=== PATIENT | female | born 1980 | race African-American/Black ===

== ENCOUNTER 2019-05-11 19:18 | Emergency (ER) | payer MEDICAID ==
[~2019-05-11] VITALS: Ht 162.6 cm; Wt 128.8 kg
[2019-05-11] MEDS ORDERED: LIDO:MAALOX 1:1 20 ML SINGLE DOSE. SWSW ONE (20:00)
[2019-05-11] MEDS ORDERED: IV NORMAL SALINE 1000ML BAG 1,000 ML IV ONE (20:00)
[2019-05-11] MEDS ORDERED: ONDANSETRON PF 4 MG/2 ML VIAL. IV ONE (20:00)
[2019-05-11 20:07] LABS: BASO # 0.1 x10^3/uL (0.0-0.2); BASO % 1 % (0-3); EOS # 0.2 x10^3/uL (0.0-0.7); EOS % 2 % (0-3); HEMATOCRIT 36.1 % (36.0-47.0); LYMPH # 2.4 x10^3/uL (1.0-4.8); LYMPH % 27 % (24-48); MEAN CORPUSCULAR HEMOGLOBIN 26 pg (25-35); MEAN CORPUSCULAR HGB CONC 33 g/dL (31-37); MEAN CORPUSCULAR VOLUME 79 fL (79-100); MONO # 1.1 x10^3/uL (0.0-1.1); MONO % 12 % (0-9); NEUT # 5.2 x10^3/uL (1.8-7.7); NEUT % 59 % (31-73); PLATELET COUNT 347 x10^3/uL (140-400); RED BLOOD COUNT 4.57 x10^6/uL (3.50-5.40); RED CELL DISTRIBUTION WIDTH 16.4 % (11.5-14.5); WHITE BLOOD COUNT 8.9 x10^3/uL (4.0-11.0)
[2019-05-11 20:08] LABS: BILIRUBIN,URINE NEGATIVE (NEG); CLARITY,URINE CLEAR; COLOR,URINE AMBER; NITRITE,URINE NEGATIVE (NEG); PROTEIN,URINE NEGATIVE (NEG-TRACE)
[2019-05-11 20:15] LABS: CALCIUM 9.5 mg/dL (8.5-10.1); CREATININE 0.9 mg/dL (0.6-1.0); GFR 83.5; POTASSIUM 4.1 mmol/L (3.5-5.1)
[2019-05-11 20:21] LABS: ALBUMIN 3.1 g/dL (3.4-5.0); ALBUMIN/GLOBULIN RATIO 0.7 (1.0-1.7); MAGNESIUM 1.8 mg/dL (1.8-2.4); TOTAL BILIRUBIN 0.7 mg/dL (0.2-1.0); TOTAL PROTEIN 7.5 g/dL (6.4-8.2)
[2019-05-11 20:31] LABS: RBC,URINE 0 /HPF (0-2)
[2019-05-11 20:32] LABS: BACTERIA,URINE MODERATE /HPF (0-FEW); SQUAMOUS EPITHELIAL CELL,UR MOD /LPF
[2019-05-11] MEDS ORDERED: OMEP20TA8 PO (22:00)
[2019-05-11] MEDS ORDERED: NITR100C62 PO (22:00)
[2019-05-11] MEDS ORDERED: ONDA4TAB12 PO (22:00)
[2019-05-11 22:01] VITALS: BP 129/81
--- NOTE | 2019-05-11 22:03 | PHYS DOC ---
Past Medical History Past Medical History: Asthma Additional Past Medical Histor: ECZEMA, SEASONAL ALLERGIES Past Surgical History: Cholecystectomy Alcohol Use: None Drug Use: None Adult General Chief Complaint Chief Complaint: ABDOMINAL PAIN HPI HPI Patient is a 39 year old AA female who presents to the emergency department with complaints of epigastric abdominal pain and nausea for the last 3 days. Patient states that the pain increases when she lies flat and after she eats. This pain is accompanied by nausea, hot flashes, and chills. She also states that she has felt like she has a urinary tract infection. However, she denies any dysuria, increased urinary frequency, low back pain, lower abdominal pain, or hematuria. Currently rates her pain as 7 out of 10 on the pain scale, she denies any alleviating factors, reports exacerbating factors as stated above. Review of Systems Review of Systems Constitutional: Denies fever, see HPI Eyes: Denies change in visual acuity, redness, or eye pain [] HENT: Denies nasal congestion or sore throat [] Respiratory: Denies cough or shortness of breath [] Cardiovascular: No additional information not addressed in HPI [] GI: Denies bloody stools or diarrhea; see HPI[] : Denies dysuria or hematuria; see HPI[] Musculoskeletal: Denies back pain or joint pain [] Integument: Denies rash or skin lesions [] Neurologic: Denies headache, focal weakness or sensory changes [] Endocrine: Denies polyuria or polydipsia [] Complete systems were reviewed and found to be within normal limits, except as documented in this note. Current Medications Current Medications Current Medications Medications (Trade) Dose Ordered Sig/[facility] Start Time Stop Time Status Last Admin Dose Admin Multi-Ingredient Mouthwash/Gargle (Gi Cocktail) 20 ml 1X ONCE 05/11/19 20:00 05/11/19 20:01 DC 05/11/19 20:12 20 ML Ondansetron HCl (Zofran) 4 mg 1X ONCE 05/11/19 20:00 05/11/19 20:01 DC 05/11/19 20:12 4 MG Sodium Chloride 1,000 ml @ 1,000 mls/hr 1X ONCE 05/11/19 20:00 05/11/19 20:59 DC 05/11/19 20:12 1,000 MLS/HR Allergies Allergies Allergies Coded Allergies Type Severity Reaction Last Updated Verified Penicillins Allergy Intermediate NAUSEA/VOMITING 05/11/19 Yes Physical Exam Physical Exam Constitutional: Well developed, well nourished, no acute distress, non-toxic appearance, obese. [] HENT: Normocephalic, atraumatic, bilateral external ears normal, oropharynx moist, no oral exudates, nose normal. [] Eyes: PERRLA, EOMI, conjunctiva normal, no discharge. [] Neck: Normal range of motion, no tenderness, supple, no stridor. [] Cardiovascular:Heart rate regular rhythm, no murmur [] Lungs & Thorax: Bilateral breath sounds clear to auscultation [] Abdomen: Bowel sounds normal, soft, epigastric TTP, no guarding, no rebound tenderness, no masses, no pulsatile masses. [] Skin: Warm, dry, no erythema, no rash. [] Back: No tenderness, no CVA tenderness. [] Extremities: No cyanosis, no clubbing, ROM intact, no edema. [] Neurologic: Alert and oriented X 3, no focal deficits noted. [] Psychologic: Affect normal, judgement normal, mood normal. [] Current Patient Data Vital Signs Vital Signs Date Time Temp Pulse Resp B/P (MAP) Pulse Ox O2 Delivery O2 Flow Rate FiO2 05/11/19 19:28 98.3 84 18 134/80 (98) 99 Room Air 98.3 Lab Values Laboratory Tests Test 05/11/19 19:45 05/11/19 20:00 POC Urine HCG, Qualitative Borderline hcg level White Blood Count 8.9 x10^3/uL (4.0-11.0) Red Blood Count 4.57 x10^6/uL (3.50-5.40) Hemoglobin 12.0 g/dL (12.0-15.5) Hematocrit 36.1 % (36.0-47.0) Mean Corpuscular Volume 79 fL (79-100) Mean Corpuscular Hemoglobin 26 pg (25-35) Mean Corpuscular Hemoglobin Concent 33 g/dL (31-37) Red Cell Distribution Width 16.4 % (11.5-14.5) H Platelet Count 347 x10^3/uL (140-400) Neutrophils (%) (Auto) 59 % (31-73) Lymphocytes (%) (Auto) 27 % (24-48) Monocytes (%) (Auto) 12 % (0-9) H Eosinophils (%) (Auto) 2 % (0-3) Basophils (%) (Auto) 1 % (0-3) Neutrophils # (Auto) 5.2 x10^3/uL (1.8-7.7) Lymphocytes # (Auto) 2.4 x10^3/uL (1.0-4.8) Monocytes # (Auto) 1.1 x10^3/uL (0.0-1.1) Eosinophils # (Auto) 0.2 x10^3/uL (0.0-0.7) Basophils # (Auto) 0.1 x10^3/uL (0.0-0.2) Urine Collection Type Void Urine Color Dionna Urine Clarity Clear Urine pH 7.0 Urine Specific [place] >=1.030 Urine Protein Negative mg/dL (NEG-TRACE) Urine Glucose (UA) Negative mg/dL (NEG) Urine Ketones (Stick) Negative mg/dL (NEG) Urine Blood Negative (NEG) Urine Nitrite Negative (NEG) Urine Bilirubin Negative (NEG) Urine Urobilinogen Dipstick 1.0 mg/dL (0.2 mg/dL) Urine Leukocyte Esterase Small (NEG) Urine RBC 0 /HPF (0-2) Urine WBC 11-20 /HPF (0-4) Urine Squamous Epithelial Cells Mod /LPF Urine Bacteria Moderate /HPF (0-FEW) Urine Mucus Mod /LPF Maternal Serum HCG Beta Subunit 6 mIU/mL (0-5) H Sodium Level 138 mmol/L (136-145) Potassium Level 4.1 mmol/L (3.5-5.1) Chloride Level 102 mmol/L (98-107) Carbon Dioxide Level 27 mmol/L (21-32) Anion Gap 9 (6-14) Blood Urea Nitrogen 11 mg/dL (7-20) Creatinine 0.9 mg/dL (0.6-1.0) Estimated GFR (Cockcroft-Gault) 83.5 BUN/Creatinine Ratio 12 (6-20) Glucose Level 108 mg/dL (70-99) H Calcium Level 9.5 mg/dL (8.5-10.1) Magnesium Level 1.8 mg/dL (1.8-2.4) Total Bilirubin 0.7 mg/dL (0.2-1.0) Aspartate Amino Transferase (AST) 17 U/L (15-37) Alanine Aminotransferase (ALT) 15 U/L (14-59) Alkaline Phosphatase 75 U/L (46-116) Total Protein 7.5 g/dL (6.4-8.2) Albumin 3.1 g/dL (3.4-5.0) L Albumin/Globulin Ratio 0.7 (1.0-1.7) L Lipase 74 U/L (73-393) Laboratory Tests 05/11/19 20:00 Laboratory Tests 05/11/19 20:00 EKG EKG [] Radiology/Procedures Radiology/Procedures [] Course & Med Decision Making Course & Med Decision Making Pertinent Labs and Imaging studies reviewed. (See chart for details) dx: GERD, elevated HCG, UTI Pt was given a Gi cocktail, 1L NS, and 4 mg of Zofran in the ER. SHe reports decreased pain and nausea after meds. CBC unremarkable, CMP glucose 108 otherwise unremarkable, lipase normal, UA 11-20 WBC, borderline HCG. Beta HCG 6. Discussed findings with patient. Pt declines any chance of , states she last had intercourse 1 yr ago. Advised patient that there are other causes of elevated HCG and to follow up with PCP to have level rechecked in 1-2 days. Will prescribe omeprazole, zofran, and macrobid. Patient verbalized an understanding of home care, medications, follow-up, and return to ED instructions and was in agreement with the plan of care. [] Dragon Disclaimer Dragon Disclaimer This electronic medical record was generated, in whole or in part, using a voice recognition dictation system. Departure Departure Impression: Primary Impression: Gastroesophageal reflux disease Additional Impressions: Elevated serum hCG UTI (urinary tract infection) Disposition: 01 HOME, SELF-CARE Condition: STABLE Referrals: NO PCP (PCP) Patient Instructions: Diet for Gastroesophageal Reflux Disease, Adult, [id number], Gastroesophageal Reflux Disease, Adult, [id number], Urinary Tract Infection, Child Additional Instructions: Fill prescription(s) and use as directed. Avoid bladder and reflux irritants such as caffeine, carbonation, and spicy foods. Increase clear fluids. Follow up with your primary care doctor in 1-2 days to have HCG level rechecked. Return to the ER if symptoms worsen. Scripts Ondansetron (ONDANSETRON ODT) 4 Mg Tab.rapdis 1 TAB PO PRN Q6-8HRS PRN for NAUSEA/VOMITING for 4 Days, #16 TAB 0 Refills Prov: [employer]ON [employer] 05/11/19 Nitrofurantoin Monohyd/M-Cryst (MACROBID 100 MG CAPSULE) 100 Mg Capsule 1 CAP PO BID for 7 Days, #14 CAP 0 Refills Prov: J[employer]ON [employer] 05/11/19 Omeprazole (OMEPRAZOLE) 20 Mg Tablet.dr 1 TAB PO BID for 10 Days, #20 TAB 0 Refills Prov: [employer]ON [employer] 05/11/19 Problem Qualifiers Primary Impression: Gastroesophageal reflux disease Esophagitis presence: esophagitis presence not specified Qualified Codes: K21.9 - Gastro-esophageal reflux disease without esophagitis Additional Impressions: UTI (urinary tract infection) Urinary tract infection type: site unspecified Hematuria presence: without hematuria Qualified Codes: N39.0 - Urinary tract infection, site not specified [employer] May 11, 2019 22:03
== END 2019-05-11 22:20 | disposition home or self-care (01) ==
LOC: ER 19:18
DX: K21.9 Gastro-esophageal reflux disease without esophagitis (principal); N39.0 Urinary tract infection, site not specified; R89.1 Abnormal level of hormones in specimens from other organs, systems and tissues; J45.909 Unspecified asthma, uncomplicated; Z90.49 Acquired absence of other specified parts of digestive tract; Z88.0 Allergy status to penicillin
CPT/HCPCS: 36415; 80053; 81001; 81025; 83690; 83735; 84702; 85025; 87086; 96374; 99284; J2405; J7030

== ENCOUNTER 2021-12-31 21:24 | Emergency (ER) | payer MEDICAID ==
[~2021-12-31] VITALS: Ht 162.6 cm; Wt 132.2 kg
[~2021-12-31 21:24] MED LIST: NITR100C62 PO; OMEP20TA91 PO; ONDA4TAB12 PO
[2021-12-31 21:30] VITALS: BP 122/58
[2021-12-31] MEDS ORDERED: MUPI22OI2 TP (21:55)
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
== END 2021-12-31 22:08 | disposition home or self-care (01) ==
LOC: ER 21:24
DX: S31.109A Unspecified open wound of abdominal wall, unspecified quadrant without penetration into peritoneal cavity, initial encounter (principal); J45.909 Unspecified asthma, uncomplicated; Z88.0 Allergy status to penicillin; W50.1XXA Accidental kick by another person, initial encounter; Y93.89 Activity, other specified; Y92.89 Other specified places as the place of occurrence of the external cause; Y99.8 Other external cause status
CPT/HCPCS: 99283